=== PATIENT | female | born 1940 | race Caucasian/White ===

== ENCOUNTER 2017-01-29 23:21 | Inpatient (IN) | payer OTHER ==
[~2017-01-29] VITALS: Ht 157.5 cm; Wt 72.6 kg
[2017-01-29] MEDS ORDERED: NITROGLYCERIN OINT 1GM/INCH UDPKT TD ONE (23:45)
[2017-01-29] MEDS ORDERED: ASPIRIN 81MG TABLET PO ONE (23:45)
[2017-01-30 00:21] LABS: BASOPHILS % 0.4 % (0.0-2.0); EOSINOPHILS % 0.2 % (0.0-5.0); HEMATOCRIT. 38.1 % (36.0-48.0); HEMOGLOBIN. 12.9 g/dL (12.0-16.0); LYMPHOCYTES % 15.9 % (20.0-50.0); MEAN CORPUSCULAR HEMOGLOBIN 28.4 pg (28.0-32.0); MEAN CORPUSCULAR VOLUME 83.8 fL (81.0-99.0); MEAN PLATELET VOLUME 9.4 fl (7.4-10.4); MONOCYTES % 8.1 % (2.0-8.0); NEUTROPHILS % 75.4 % (40.0-76.0); PLATELET 191 x1000/uL (130-400); RED BLOOD CELL COUNT 4.54 mill/uL (4.2-5.4); RED CELL DISTRIBUTION WIDTH 13.9 % (11.6-14.6)
[2017-01-30 00:31] LABS: CARBON DIOXIDE 27 mEq/L (21-32); CHLORIDE 102 mEq/L (98-107); ETHANOL BLOOD < 10 mg/dL; INR 1.1; PARTIAL THROMBOPLASTIN TIME 24.5 sec (23.4-31.0); PROTHROMBIN TIME 11.3 sec (9.4-11.6); TROPONIN I < 0.02 ng/mL (0.00-0.04)
[2017-01-30 00:38] LABS: D-DIMER 14.39 mg/L FEU (<0.50)
[2017-01-30] MEDS ORDERED: DIPHENHYDRAMINE 50MG/ML VIAL IV PRN (05:00)
[2017-01-30] MEDS ORDERED: MAGNESIUM/ALUMINUM HYDROXIDE/SIMETHICONE 30ML UDC PO PRN (05:00)
[2017-01-30 08:00] VITALS: BP 149/70
[2017-01-30 09:08] VITALS: BP 150/90
[2017-01-30] MEDS: ENOXAPARIN 30MG/0.3ML SYR SUBCUT SCH (10:11)
[2017-01-30] MEDS: SODIUM CHLORIDE 0.9% INJ 3ML FLUSH IVF SCH ×3 (10:12→20:42)
[2017-01-30] MEDS: LOSARTAN POTASSIUM 25 MG TABLET PO SCH (10:12)
[2017-01-30 10:28] LABS: T4 FREE 1.31 ng/dL (0.76-1.46)
[2017-01-30 12:00] VITALS: BP 147/66
[2017-01-30 15:29] LABS: CREATINE KINASE MB FRACTION 0.7 ng/mL (0.5-3.6)
[2017-01-30 16:00] VITALS: BP 160/80
[2017-01-30] MEDS: CLONIDINE 0.1MG TABLET PO PRN (18:44)
[2017-01-30 20:00] VITALS: BP 122/67
[2017-01-31] VITALS: BP 118/58
[2017-01-31 00:23] LABS: CREATINE KINASE MB FRACTION 0.8 ng/mL (0.5-3.6)
[2017-01-31 04:00] VITALS: BP 107/64
[2017-01-31] MEDS: SODIUM CHLORIDE 0.9% INJ 3ML FLUSH IVF SCH ×3 (07:26→21:12)
[2017-01-31 07:49] LABS: CREATINE KINASE MB FRACTION 0.7 ng/mL (0.5-3.6)
[2017-01-31 08:00] VITALS: BP 113/72
[2017-01-31] MEDS: LOSARTAN POTASSIUM 25 MG TABLET PO SCH (09:00)
[2017-01-31] MEDS ORDERED: DIGOXIN 500MCG/2ML AMP IV SCH (09:10)
[2017-01-31] MEDS: ENOXAPARIN 30MG/0.3ML SYR SUBCUT SCH (09:36)
[2017-01-31 12:00] VITALS: BP 126/66
[2017-01-31 16:00] VITALS: BP 121/68
[2017-01-31] MEDS: ACETAMINOPHEN 325MG TABLET PO PRN ×2 (17:15→22:05)
[2017-01-31] MEDS: DIGOXIN 125MCG TABLET PO SCH (17:16)
[2017-01-31 20:00] VITALS: BP 135/72
[2017-02-01] VITALS: BP 107/69
[2017-02-01 04:00] VITALS: BP 115/71
[2017-02-01 05:37] LABS: BASOPHILS % 1.1 % (0.0-2.0); EOSINOPHILS % 1.6 % (0.0-5.0); HEMATOCRIT. 40.5 % (36.0-48.0); HEMOGLOBIN. 13.8 g/dL (12.0-16.0); LYMPHOCYTES % 30.5 % (20.0-50.0); MEAN CORPUSCULAR HEMOGLOBIN 28.8 pg (28.0-32.0); MEAN CORPUSCULAR VOLUME 84.5 fL (81.0-99.0); MEAN PLATELET VOLUME 9.4 fl (7.4-10.4); MONOCYTES % 11.1 % (2.0-8.0); NEUTROPHILS % 55.7 % (40.0-76.0); PLATELET 214 x1000/uL (130-400); RED BLOOD CELL COUNT 4.79 mill/uL (4.2-5.4); RED CELL DISTRIBUTION WIDTH 13.6 % (11.6-14.6)
[2017-02-01] MEDS: SODIUM CHLORIDE 0.9% INJ 3ML FLUSH IVF SCH ×3 (06:22→21:27)
[2017-02-01 08:00] VITALS: BP 117/68
[2017-02-01] MEDS: ENOXAPARIN 30MG/0.3ML SYR SUBCUT SCH (08:46)
[2017-02-01] MEDS: LOSARTAN POTASSIUM 25 MG TABLET PO SCH (08:51)
[2017-02-01] MEDS ORDERED: ENOXAPARIN 40MG/0.4ML SYR SUBCUT NR (10:30)
[2017-02-01 12:00] VITALS: BP 117/70
[2017-02-01] MEDS ORDERED: SODIUM CHLORIDE 0.9% 10ML VIAL ONE (13:28)
[2017-02-01] MEDS ORDERED: IOHEXOL-350 100 ML BOTTLE ONE (13:28)
[2017-02-01 16:00] VITALS: BP 115/69
[2017-02-01] MEDS: DIGOXIN 125MCG TABLET PO SCH (18:23)
[2017-02-01 20:00] VITALS: BP 107/57
[2017-02-01] MEDS: ENOXAPARIN 80MG/0.8ML SYR SUBCUT SCH (21:27)
[2017-02-01] MEDS: SODIUM CHLORIDE 0.9% 1,000 ML IV SCH (21:27)
[2017-02-02] VITALS: BP 134/68
[2017-02-02 04:00] VITALS: BP 148/67
[2017-02-02] MEDS: SODIUM CHLORIDE 0.9% 1,000 ML IV SCH ×3 (04:06→22:30)
[2017-02-02 07:59] LABS: BASOPHILS % 1.1 % (0.0-2.0); EOSINOPHILS % 2.8 % (0.0-5.0); HEMOGLOBIN. 12.3 g/dL (12.0-16.0); MEAN CORPUSCULAR HEMOGLOBIN 28.4 pg (28.0-32.0); MEAN CORPUSCULAR VOLUME 85.1 fL (81.0-99.0); MEAN PLATELET VOLUME 9.1 fl (7.4-10.4); MONOCYTES % 9.9 % (2.0-8.0); NEUTROPHILS % 52.2 % (40.0-76.0); PLATELET 205 x1000/uL (130-400); RED BLOOD CELL COUNT 4.34 mill/uL (4.2-5.4); RED CELL DISTRIBUTION WIDTH 13.7 % (11.6-14.6)
[2017-02-02 08:00] VITALS: BP 140/74
[2017-02-02] MEDS: LOSARTAN POTASSIUM 25 MG TABLET PO SCH (08:35)
[2017-02-02] MEDS: ENOXAPARIN 80MG/0.8ML SYR SUBCUT SCH ×2 (08:38→22:30)
[2017-02-02 12:00] VITALS: BP 125/77
[2017-02-02] MEDS ORDERED: IPRATROPIUM/ALBUTEROL 0.5-3(2.5)MG/3ML NEB HHN PRN (14:45)
[2017-02-02 16:00] VITALS: BP 126/59
[2017-02-02] MEDS: SODIUM CHLORIDE 0.9% INJ 3ML FLUSH IVF SCH ×2 (16:19→22:29)
[2017-02-02] MEDS: DIGOXIN 125MCG TABLET PO SCH (17:50)
[2017-02-02 20:00] VITALS: BP 136/57
[2017-02-03] VITALS: BP 146/47
[2017-02-03] MEDS: SODIUM CHLORIDE 0.9% 1,000 ML IV SCH ×3 (02:18→10:15)
[2017-02-03 04:00] VITALS: BP 167/73
[2017-02-03] MEDS: SODIUM CHLORIDE 0.9% INJ 3ML FLUSH IVF SCH ×3 (04:41→22:00)
[2017-02-03] MEDS: CLONIDINE 0.1MG TABLET PO PRN (04:41)
[2017-02-03 08:00] VITALS: BP 124/60
[2017-02-03] MEDS: ENOXAPARIN 80MG/0.8ML SYR SUBCUT SCH ×2 (08:35→22:09)
[2017-02-03] MEDS: LOSARTAN POTASSIUM 25 MG TABLET PO SCH (08:35)
[2017-02-03 12:00] VITALS: BP 122/64
[2017-02-03 16:00] VITALS: BP 126/56
[2017-02-03] MEDS: DIGOXIN 125MCG TABLET PO SCH (17:23)
[2017-02-03] MEDS ORDERED: WARFARIN SODIUM 7.5MG TABLET PO NR (18:00)
[2017-02-04 04:00] VITALS: BP 128/66
[2017-02-04] MEDS: SODIUM CHLORIDE 0.9% INJ 3ML FLUSH IVF SCH ×3 (05:20→23:42)
[2017-02-04 06:53] LABS: INR 1.1; PROTHROMBIN TIME 11.5 sec (9.4-11.6)
[2017-02-04 08:00] VITALS: BP 141/66
[2017-02-04] MEDS: ENOXAPARIN 80MG/0.8ML SYR SUBCUT SCH ×2 (08:30→23:42)
[2017-02-04] MEDS: LOSARTAN POTASSIUM 25 MG TABLET PO SCH (08:35)
[2017-02-04 12:00] VITALS: BP 142/68
[2017-02-04 16:00] VITALS: BP 157/77
[2017-02-04] MEDS: DIGOXIN 125MCG TABLET PO SCH (17:27)
[2017-02-04] MEDS ORDERED: WARFARIN SODIUM 7.5MG TABLET PO NR (18:00)
[2017-02-04 20:00] VITALS: BP 153/68
[2017-02-04] MEDS ORDERED: RIVAROXABAN 15 MG TABLET PO SCH (22:30)
[2017-02-05] VITALS: BP 151/64
[2017-02-05 04:00] VITALS: BP 154/65
[2017-02-05 06:31] LABS: BASOPHILS % 1.1 % (0.0-2.0); HEMATOCRIT. 35.8 % (36.0-48.0); HEMOGLOBIN. 11.9 g/dL (12.0-16.0); LYMPHOCYTES % 36.7 % (20.0-50.0); MEAN CORPUSCULAR HEMOGLOBIN 28.1 pg (28.0-32.0); MEAN CORPUSCULAR VOLUME 84.4 fL (81.0-99.0); MEAN PLATELET VOLUME 8.8 fl (7.4-10.4); MONOCYTES % 11.2 % (2.0-8.0); PLATELET 235 x1000/uL (130-400); RED BLOOD CELL COUNT 4.24 mill/uL (4.2-5.4); RED CELL DISTRIBUTION WIDTH 13.9 % (11.6-14.6)
[2017-02-05 06:38] LABS: INR 1.2; PROTHROMBIN TIME 12.7 sec (9.4-11.6)
[2017-02-05] MEDS: SODIUM CHLORIDE 0.9% INJ 3ML FLUSH IVF SCH ×3 (07:06→21:23)
[2017-02-05 08:00] VITALS: BP 133/52
[2017-02-05] MEDS: ENOXAPARIN 80MG/0.8ML SYR SUBCUT SCH ×2 (08:36→21:23)
[2017-02-05] MEDS: LOSARTAN POTASSIUM 25 MG TABLET PO SCH (08:36)
[2017-02-05 12:00] VITALS: BP 137/55
[2017-02-05 16:00] VITALS: BP 120/56
[2017-02-05] MEDS: DIGOXIN 125MCG TABLET PO SCH (17:15)
[2017-02-05 20:00] VITALS: BP 111/61
[2017-02-06] VITALS: BP 137/50
[2017-02-06 04:00] VITALS: BP 154/76
[2017-02-06 05:46] LABS: INR 1.3
[2017-02-06] MEDS: SODIUM CHLORIDE 0.9% INJ 3ML FLUSH IVF SCH (06:00)
[2017-02-06 08:00] VITALS: BP 112/67
[2017-02-06] MEDS: LOSARTAN POTASSIUM 25 MG TABLET PO SCH (09:00)
[2017-02-06] MEDS: ENOXAPARIN 80MG/0.8ML SYR SUBCUT SCH (09:59)
[2017-02-06 12:00] VITALS: BP 126/68
[2017-02-06 13:56] VITALS: BP 126/68
== END 2017-02-06 14:10 | disposition home or self-care (01) | DRG 175 ==
LOC: ER 23:22 → 5WST 01-30 02:14 → ENRESERV 01-30 06:55
PROVIDERS: ADMIT Internal Medicine; ATTEND Internal Medicine
DX: I26.99 Other pulmonary embolism without acute cor pulmonale (principal); J96.00 Acute respiratory failure, unspecified whether with hypoxia or hypercapnia; J90 Pleural effusion, not elsewhere classified; I31.3 Pericardial effusion (noninflammatory); J98.11 Atelectasis; I48.0 Paroxysmal atrial fibrillation; I10 Essential (primary) hypertension; E04.1 Nontoxic single thyroid nodule; I51.7 Cardiomegaly; I73.9 Peripheral vascular disease, unspecified; K44.9 Diaphragmatic hernia without obstruction or gangrene; N28.9 Disorder of kidney and ureter, unspecified; Z86.718 Personal history of other venous thrombosis and embolism; Z88.8 Allergy status to other drugs, medicaments and biological substances; Z82.49 Family history of ischemic heart disease and other diseases of the circulatory system; Z79.899 Other long term (current) drug therapy
CPT/HCPCS: 36415; 71010; 71275; 78582; 80048; 80053; 80061; 82550; 82553; 83036; 83690; 83735; 83880; 84439; 84443; 84484; 85025; 85379; 85610; 85730; 87015; 87040; 87045; 87086; 87427; 87449; 89055; 93005; 93306; 93970; 94620; 99285; A4216; A9558; G0482; J1160; J1650; J7030; Q9967